=== PATIENT | male | born 1970 | race Caucasian/White ===

== ENCOUNTER 2019-07-25 14:47 | Emergency (ER) | payer BC ==
[~2019-07-25] VITALS: Ht 182.9 cm; Wt 97.5 kg
[2019-07-25] MEDS ORDERED: TOPAMAX 25 MG T25 M1 PO (14:56)
[2019-07-25] MEDS ORDERED: DOXYCYCLINE MO100 MG PO (15:49)
[2019-07-25 15:56] VITALS: BP 144/92
== END 2019-07-25 15:56 | disposition home or self-care (01) ==
LOC: M.ERS 14:47
DX: S01.511A Laceration without foreign body of lip, initial encounter (principal); W54.0XXA Bitten by dog, initial encounter; Y93.89 Activity, other specified; Y92.89 Other specified places as the place of occurrence of the external cause; Y99.8 Other external cause status